=== PATIENT | male | born 1985 | race African-American/Black ===

== ENCOUNTER 2019-04-11 23:59 | Emergency (ER) | payer MEDICAID, OTHER ==
[~2019-04-11] VITALS: Ht 180.3 cm; Wt 59.0 kg
[~2019-04-11 23:59] MED LIST: TRILIPTAL; [UNRECOGNIZED DRUG - OTHER]; tri
[2019-04-12] MEDS ORDERED: KETOROLAC 30MG/ML VIAL IV STA (01:41)
[2019-04-12] MEDS ORDERED: LORAZEPAM 2MG/ML CPJ IV ONE (01:45)
[2019-04-12 02:27] LABS: EOSINOPHILS % 2.5 % (0.0-5.0); HEMOGLOBIN. 15.6 g/dL (14.0-18.0); LYMPHOCYTES % 21.5 % (20.0-50.0); MEAN CORPUSCULAR HEMOGLOBIN 32.8 pg (28.0-32.0); MONOCYTES % 9.1 % (2.0-8.0); NEUTROPHILS % 65.9 % (40.0-76.0); PLATELET 228 x1000/uL (130-400); RED BLOOD CELL COUNT 4.74 mill/uL (4.7-6.1); RED CELL DISTRIBUTION WIDTH 13.1 % (11.6-14.6)
[2019-04-12 02:33] LABS: CHLORIDE 108 mEq/L (98-107)
[2019-04-12 06:08] VITALS: BP 104/71
== END 2019-04-12 06:17 | disposition home or self-care (01) ==
LOC: ER 23:59
DX: G47.00 Insomnia, unspecified (principal); R56.9 Unspecified convulsions; I50.9 Heart failure, unspecified; Z88.8 Allergy status to other drugs, medicaments and biological substances; Z87.891 Personal history of nicotine dependence; Z91.040 Latex allergy status; Z98.890 Other specified postprocedural states
CPT/HCPCS: 36415; 70450; 71045; 80053; 85025; 93005; 96374; 96375; 99284; J1885; J2060

== ENCOUNTER 2019-06-17 21:19 | Emergency (ER) | payer MEDICAID ==
[~2019-06-17] VITALS: Ht 180.3 cm; Wt 59.1 kg
[2019-06-17] MEDS ORDERED: AMPICILLIN SOD/SULBACTAM NA 1.5 G in SODIUM CHLORIDE 0.9% 50 ML IV SCH (22:45)
[2019-06-17 23:29] LABS: EOSINOPHILS % 14.7 % (0.0-5.0); HEMATOCRIT. 42.8 % (42.0-52.0); HEMOGLOBIN. 14.4 g/dL (14.0-18.0); MEAN CORPUSCULAR HEMOGLOBIN 32.3 pg (28.0-32.0); MEAN CORPUSCULAR VOLUME 95.8 fL (80.0-94.0); MEAN PLATELET VOLUME 9.1 fl (7.4-10.4); MONOCYTES % 8.9 % (2.0-8.0); NEUTROPHILS % 48.4 % (40.0-76.0); PLATELET 193 x1000/uL (130-400); RED BLOOD CELL COUNT 4.47 mill/uL (4.7-6.1); RED CELL DISTRIBUTION WIDTH 12.8 % (11.6-14.6)
[2019-06-17 23:35] LABS: CHLORIDE 108 mEq/L (98-107)
[2019-06-18] MEDS ORDERED: ONDANSETRON HCL 4MG/2ML INJ IV ONE
[2019-06-18 01:38] VITALS: BP 125/71
== END 2019-06-18 01:39 | disposition home or self-care (01) ==
LOC: ER 21:19 → CANBEDREQ 06-18 01:42
DX: L03.115 Cellulitis of right lower limb (principal); Z86.73 Personal history of transient ischemic attack (TIA), and cerebral infarction without residual deficits; Z88.8 Allergy status to other drugs, medicaments and biological substances; Z91.040 Latex allergy status; Z79.899 Other long term (current) drug therapy
CPT/HCPCS: 36415; 80053; 85025; 87040; 96365; 96375; 99283; J0295; J2405

== ENCOUNTER 2019-08-06 01:19 | Emergency (ER) | payer MEDICAID, OTHER ==
[~2019-08-06] VITALS: Ht 177.8 cm; Wt 63.0 kg
[2019-08-06 04:24] LABS: BASOPHILS % 0.9 % (0.0-2.0); EOSINOPHILS % 0.8 % (0.0-5.0); HEMATOCRIT. 44.6 % (42.0-52.0); HEMOGLOBIN. 14.9 g/dL (14.0-18.0); LYMPHOCYTES % 23.6 % (20.0-50.0); MEAN CORPUSCULAR HEMOGLOBIN 31.5 pg (28.0-32.0); MEAN CORPUSCULAR VOLUME 94.2 fL (80.0-94.0); MEAN PLATELET VOLUME 8.4 fl (7.4-10.4); MONOCYTES % 9.4 % (2.0-8.0); NEUTROPHILS % 65.3 % (40.0-76.0); PLATELET 187 x1000/uL (130-400); RED BLOOD CELL COUNT 4.74 mill/uL (4.7-6.1); RED CELL DISTRIBUTION WIDTH 12.6 % (11.6-14.6)
[2019-08-06 04:32] LABS: CHLORIDE 112 mEq/L (98-107)
[2019-08-06 04:36] LABS: ETHANOL BLOOD < 10 mg/dL
[2019-08-06 06:09] LABS: CLARITY URINE TURBID (CLEAR); COLOR URINE YELLOW (YELLOW); KETONES URINE 1+ (NEGATIVE); LEUKOCYTE ESTERASE URINE NEGATIVE (NEGATIVE); NITRITE URINE NEGATIVE (NEGATIVE); OCCULT BLOOD URINE NEGATIVE (NEGATIVE); PH URINE 7.5 (4.5-8.0); PROTEIN URINE NEGATIVE (NEGATIVE); SPECIFIC GRAVITY URINE 1.026 (1.005-1.030)
[2019-08-06 06:34] LABS: *AMPHETAMINES SCREEN URINE NEGATIVE (NEGATIVE)
[2019-08-06 06:35] LABS: *BARBITURATES SCREEN URINE NEGATIVE (NEGATIVE); *BENZODIAZEPINES SCREEN URINE NEGATIVE (NEGATIVE); *COCAINE SCREEN URINE NEGATIVE (NEGATIVE); CANNABINOID URINE SCREEN NEGATIVE (NEGATIVE); METHADONE URINE SCREEN NEGATIVE (NEGATIVE); OPIATES URINE SCREEN NEGATIVE (NEGATIVE); PHENCYCLIDINE URINE SCREEN NEGATIVE (NEGATIVE)
[2019-08-06] MEDS ORDERED: ZONISAMIDE 100MG CAPSULE PO ONE (11:00)
[2019-08-06] MEDS ORDERED: OXCARBAZEPINE 300MG TABLET PO SCH (11:00)
[2019-08-06 13:13] VITALS: BP 113/69
== END 2019-08-06 13:31 | disposition home or self-care (01) ==
LOC: ER 01:19
DX: R25.1 Tremor, unspecified (principal); R56.9 Unspecified convulsions; I63.512 Cerebral infarction due to unspecified occlusion or stenosis of left middle cerebral artery; Z86.73 Personal history of transient ischemic attack (TIA), and cerebral infarction without residual deficits; Z88.1 Allergy status to other antibiotic agents; Z91.040 Latex allergy status; Z88.2 Allergy status to sulfonamides
CPT/HCPCS: 36415; 70450; 80053; 80305; 80320; 81003; 85025; 99284; Z7610; G0480